=== PATIENT | male | born 1955 | race Caucasian/White ===

== ENCOUNTER 2019-07-21 15:50 | Outpatient (CLI) | payer OTHER | END 2019-07-21 17:00 | disposition home or self-care (01) | LOC: RAD 15:50 | DX: M19.042 Primary osteoarthritis, left hand (principal) ==

== ENCOUNTER 2021-05-03 16:28 | Emergency (ER) | payer OTHER ==
[~2021-05-03] VITALS: Ht 165.1 cm; Wt 81.6 kg
[2021-05-03] MEDS ORDERED: JARDIANCE10 MG (17:05)
[2021-05-03] MEDS ORDERED: JANUMET 50-1,01 EACH (17:05)
[2021-05-03] MEDS ORDERED: LANTUS SOL100 UNIT/1 (17:05)
[2021-05-03] MEDS ORDERED: CIPRO500 MG PO (23:27)
[2021-05-03] MEDS ORDERED: TERCONAZOLE20 GM VAG (23:27)
[2021-05-03] MEDS ORDERED: INTESTINEX680 M1 PO (23:27)
[2021-05-03] MEDS ORDERED: MUPIROCIN1 G1 TOP (23:27)
== END 2021-05-03 23:23 | disposition home or self-care (01) ==
LOC: ER 16:28
DX: N48.1 Balanitis (principal); N47.2 Paraphimosis